=== PATIENT | female | born 1970 | race Caucasian/White ===

== ENCOUNTER 2023-07-11 06:39 | Day surgery (SDC) | payer MEDICARE, OTHER, SELFPAY ==
[2023-07-11] VITALS (12 sets, daily range): BP systolic 113–142; BP diastolic 52–92; PULSE 82–99; RESP 14–18; TEMP 36.1–36.4; O2SAT 94–98; BMI 34.4
[2023-07-11] MEDS: LACTATED RINGERS 1000 ML 1,000 ML 100 ML IV (07:25)
[2023-07-11] MEDS: SODIUM CHLORIDE 0.9 % (FLUSH) 10 ML SYRINGE IVF (07:25)
[2023-07-11] MEDS: NEOMYCIN/POLYMYXIN B/HC OTIC SUSP 4 DROP EAR-BOTH (08:04)
--- NOTE | 2023-07-11 08:04 | W.ANESCHARGE ---
Anesthesia Charges Start Date/Time Anesthesia Start Date: 07/11/23 Anesthesia Start Time: 07:54 Stop Date/Time Anesthesia Stop Date: 07/11/23 Anesthesia Stop Time: 08:19
--- NOTE | 2023-07-11 08:20 | W.ANESCHARGE ---
Anesthesia Charges Start Date/Time Anesthesia Start Date: 07/11/23 Anesthesia Start Time: 07:54 Stop Date/Time Anesthesia Stop Date: 07/11/23 Anesthesia Stop Time: 08:19
--- NOTE | 2023-07-11 11:57 | W.PM.ENTPROC ---
Procedure Note Date of procedure: 07/11/23 Procedure: Preoperative diagnosis: bilateral recurrent acute otitis media serous otitis media, bilateral hearing loss presumed conductive, retained tympanostomy tubes bilateral Postoperative diagnosis same Procedure removal of retained tympanostomy tubes, bilateral myringotomy with tubes (permanent tubes) The patient was brought to the operating room and prepped and draped in the usual fashion after general mask anesthesia was induced. Left ear canal was inspected an inferior radial myringotomy incision was made. The retained tube was retrieved atraumatically. Fluid was aspirated. A T tube was placed without difficulty. Ciprodex drops were then placed in the ear canal. This was repeated on the right side in an identical fashion. The patient tolerated the procedure well and was taken to recovery in satisfactory condition blood loss was 0 mL Surgeon: Eduardo Heath MD
== END 2023-07-11 09:50 | disposition home or self-care (01) ==
PROVIDERS: PCP Family Medicine; Visit Provider Otolaryngology
PROC: (CPT 69420; principal; 2023-07-11 08:00)
DX: H65.93 Unspecified nonsuppurative otitis media, bilateral (principal); T85.9XXA Unspecified complication of internal prosthetic device, implant and graft, initial encounter
CPT/HCPCS: 69436; 00120; J0330; J1100; J2405; J2704; J3010; J7120